=== PATIENT | female | born 1995 | race Caucasian/White ===

== ENCOUNTER 2024-11-05 08:15 | Emergency (ER) | payer BC, OTHER ==
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
[2024-11-05 15:17] VITALS: BP 145/85; O2SAT 97
== END 2024-11-05 09:16 | disposition home or self-care (01) ==
LOC: ER 08:15
DX: O26.892 Other specified pregnancy related conditions, second trimester (principal); Z3A.19 19 weeks gestation of pregnancy; V49.50XA Passenger injured in collision with unspecified motor vehicles in traffic accident, initial encounter
CPT/HCPCS: 99282